=== PATIENT | male | born 1965 | race Caucasian/White ===

== ENCOUNTER 2021-01-28 11:13 | Emergency (ER) | payer BC, SELFPAY ==
[2021-01-28 11:47] VITALS: BP 142/95; PULSE 66; RESP 18; O2SAT 97; BMI 29.7
[2021-01-28 12:05] LABS: UTC Strep Screen (Rapid) Negative (Negative)
--- NOTE | 2021-01-28 12:08 | [facility].EDGENADL ---
ED Disposition Clinical Impression: Shingles outbreak Qualifiers: Herpes zoster complications: without complications Qualified Code(s): B02.9 - Zoster without complications Disposition: Home, Self-Care Condition on Discharge: Good Additional Instructions: Follow-up with optometry/ophthalmology on Saturday. Take medications as directed. Return to emergency department worsening pain, visual change. Prescriptions: Valacyclovir HCl [Valacyclovir] 1,000 mg PO TID #21 tab Transmission Status: Pending to [facility] #[id number] Referrals: Terell Angulo MD [Primary Care Provider] - 3 days Time of Disposition: 12:56 - Critical Care Critical Care Time: No Attestation: On 01/28/21, the high probability of a clinically significant, sudden or life threatening deterioration of the following system(s) required my full and direct attention, intervention and personal management. The time I documented below is in addition to time spent performing reported procedures but includes the following listed in this critical care notation. Medical Decision Making - Medical Records Medical records reviewed: Yes: I reviewed the patient's medical records. - Higinio Inquiry Pt receiving controlled substance: No Vital Signs: 01/28/21 11:47 Pulse Rate [Left] 66 Respiratory Rate 18 Blood Pressure [Right Arm] 142/95 H Blood Pressure Mean [Right Arm] 110 02 Sat by Pulse Oximetry 97 - Lab Data Lab Results 01/28/21 12:01: Strep Scn Rapid Clinic Negative Orders (Tests/Meds): ORDERS Category Date Time Status Strep Screen Confirmation Stat Micro 01/28/21 12:01 Received Medical Decision Narrative: 55yo M evaluated for few episodes of minor head trauma as well as painful lesions to his forehead. Patient sent for CT head that is unremarkable. Patient's skin findings and HPI are most concerning for possible shingles. Patient is with in reasonable amount of time for presentation therefore will be started on antivirals as well as steroids. Patient's ocular exam is unremarkable in the emergency department but did strongly counseled the patient to see optometry/ophthalmology on Saturday for further evaluation of possible ocular involvement of shingles. Patient voiced understanding. General Adult HPI - General Stated complaint: ao 01/23 head pain Time Seen by Provider: 01/28/21 12:08 Mode of Arrival: Ambulatory Source of Information: Patient Limitations: No Limitations Description of Symptoms (Recalled from ER Triage Doc. by RN): pt states he hit his head multiple times on saturday on tree branches, and the metal on the barn. pt presents with swelling between his eyebrows circling down below his R eye brow and on his upper eye lid that is red. pt also has swelling on the top of his head towards the R side. pt c/o a severe ROW[place], sharp pains in his R eye, head and R ear, he also c/o tingling and burning on his head. pt a&o x4. pt denies LOC. - History of Present Illness HPI narrative: 55y M presents the emergency department secondary to right-sided head pain. Patient reports 3 separate injuries to the right side of his head over the past week while he was working on projects at home. Denies any loss of consciousness. Patient reports his headache waxes and wanes. He reports some blurred vision in his right eye only episodically when his pain is worse. He denies significant history of headache. He then points out he is got a few lesions over his right brow that appeared on . He states there is a burning/stinging pain around these lesions. Denies being bitten by anything. Denies history of shingles or other chronic cutaneous disease. No recent fever. Normal p.o. intake. - Related Data Previous Rx's Medication Instructions Recorded Valacyclovir HCl [Valacyclovir] 1,000 mg PO TID #21 tab 01/28/21 Allergies Allergy/AdvReac Type Severity Reaction Status Date / Time No Known Allergies Allergy Verified 01/28/21 12:00
--- NOTE | 2021-01-28 12:17 | CT_ITS ---
PROCEDURE INFORMATION: Exam: CT Head Without Contrast Exam date and time: 01/28/2021 12:17 PM Age: 55 years old Clinical indication: Injury or trauma; Other: Hit in head; Additional info: Trauma, headache TECHNIQUE: Imaging protocol: Computed tomography of the head without contrast. Radiation optimization: All CT scans at this facility use at least one of these dose optimization techniques: automated exposure control; mA and/or kV adjustment per patient size (includes targeted exams where dose is matched to clinical indication); or iterative reconstruction. COMPARISON: No relevant prior studies available. FINDINGS: Brain: No hemorrhage. Unremarkable white matter. No mass effect. Cerebral ventricles: No ventriculomegaly. Paranasal sinuses: Visualized sinuses are unremarkable. No fluid levels. Mastoid air cells: No acute findings. Bones/joints: Unremarkable. No acute fracture. Soft tissues: Unremarkable. IMPRESSION: No acute intracranial abnormality.
[2021-01-28 13:49] VITALS: BP 145/87; PULSE 87; RESP 16; TEMP 36.6; O2SAT 98
== END 2021-01-28 13:51 | disposition home or self-care (01) ==
LOC: UTC 11:43 → ER 12:03
PROVIDERS: Emergency Provider Nurse Practitioner Family; PCP Family Medicine
DX: S00.83XA Contusion of other part of head, initial encounter; W22.8XXA Striking against or struck by other objects, initial encounter; Y92.019 Unspecified place in single-family (private) house as the place of occurrence of the external cause
CPT/HCPCS: 70450; 87880; 99282